=== PATIENT | female | born 1955 | race Caucasian/White ===

== ENCOUNTER 2018-06-04 09:27 | Day surgery (SDC) | payer MEDICAID ==
[2018-06-04] MEDS ORDERED: NS 1,000 ML IV ONE (09:39)
[2018-06-04] MEDS ORDERED: fentaNYL 100 MCG/2 ML INJ IVP ONE (10:00)
[2018-06-04] MEDS ORDERED: MIDAZOLAM 2 MG/2 ML VIAL IVP ONE (10:00)
[2018-06-04] MEDS ORDERED: LIDOCAINE 1% 300 MG/30 ML SDV ONE (11:43)
--- NOTE | 2018-06-04 11:43 | PDPROPOC ---
Sedation Plan of Care Sedation Plan of Care: vital signs stable, mental status noted, patient educated of risks, benefits, alternatives, patient can tolerate sedation ASA Classification: ASA 2 Planned drugs: fentanyl, midazolam Mallampati Score: Class 2 Mallampati Reference Image: Patient passed 3-3-2 rule?: Yes
--- NOTE | 2018-06-04 11:43 | PDHPUP ---
History & Physical Update H&P update statement: This history and physical update is based on an assessment of the patient which was completed after admission or registration (within 24 hours), but prior to the surgery/procedure. H&P update: H&P reviewed & patient examined, no change in patient's condition since H&P completed
[2018-06-04] MEDS ORDERED: fentaNYL 100 MCG/2 ML INJ ONE (12:19)
--- NOTE | 2018-06-04 13:00 | CPIP ---
[f rep st] INVASIVE CARDIAC PROCEDURE DATE OF PROCEDURE: 06/04/2018 PROCEDURE: Explant of [employer] LINQ device. INDICATIONS: Device at end of battery life. COMPLICATIONS: None. DESCRIPTION OF PROCEDURE: N.p.o. status was confirmed for 4 hours. Informed consent was obtained. The patient was prepped and draped in a sterile fashion. Adequate conscious sedation was achieved wi th Versed and fentanyl IV. 1% lidocaine was used for local anesthesia over the left parasternal tia on. The [employer] LINQ device was explanted using a combination of sharp and blunt dissection. Inci kayley was closed with 2 absorbable sutures and 3 lidia. Sterile dressing applied. CONCLUSIONS: 1. Successful explant of [employer] LINQ device. 2. The patient may use Tylenol and ibuprofen for pain. 3. Call the office for fever, swelling, excessive pain, drainage or redness. 4. Follow up in one week for staple removal. Patient currently in stable condition. /[id number]/MODL
== END 2018-06-04 14:03 | disposition home or self-care (01) ==
LOC: FCATH 09:27
PROVIDERS: ATTEND Internal Medicine Cardiovascular Disease
PROC: 0JPT02Z Removal of Monitoring Device from Trunk Subcutaneous Tissue and Fascia, Open Approach (ICD-10-PCS; principal; 2018-06-04)
DX: Z45.09 Encounter for adjustment and management of other cardiac device (principal); I71.2 Thoracic aortic aneurysm, without rupture; E78.5 Hyperlipidemia, unspecified; I35.1 Nonrheumatic aortic (valve) insufficiency; R00.2 Palpitations
CPT/HCPCS: J2250; J3010

== ENCOUNTER → 2018-06-22 | Outpatient (CLI) | payer MEDICAID ==
[~2018-06-22] MED LIST: IOPAMIDOL (ISOVUE 370) 100 ML BTL IV ONE
== END ==
LOC: CIMAGING 09:59
PROVIDERS: ATTEND Internal Medicine Cardiovascular Disease
DX: I71.2 Thoracic aortic aneurysm, without rupture (principal); R91.8 Other nonspecific abnormal finding of lung field; R00.2 Palpitations; M51.34 Other intervertebral disc degeneration, thoracic region
CPT/HCPCS: 71275-PO; Q9967